=== PATIENT | male | born 1985 | race Caucasian/White ===

== ENCOUNTER 2022-02-04 09:55 | Emergency (ER) | payer OTHER | END 2022-02-04 10:50 | disposition home or self-care (01) | LOC: KA.ED 09:55 | DX: S01.511A Laceration without foreign body of lip, initial encounter (principal); Z87.891 Personal history of nicotine dependence; W22.09XA Striking against other stationary object, initial encounter | CPT/HCPCS: 12013; 99282-25; 99283 ==

== ENCOUNTER 2024-12-31 08:53 | Emergency (ER) | payer BC, OTHER ==
[2024-12-31] MEDS ORDERED: Sodium Chloride 0.9% 10 ML Syringe FLUSH PRN (08:58)
[2024-12-31 09:21] LABS: BASOPHILS ABSOLUTE AUTO 0.02 10^3/uL (0.00-0.10); BASOPHILS PERCENT AUTO 0.2 % (0.0-1.0); EOSINOPHILS ABSOLUTE AUTO 0.08 10^3/uL (0.10-0.30); HEMATOCRIT 48.8 % (40.0-52.0); IMMATURE GRAN ABSOLUTE AUTO 0.02 10^3/uL (0.00-0.04); IMMATURE GRAN PERCENT AUTO 0.2 % (0.0-0.4); LYMPHOCYTES ABSOLUTE AUTO 2.59 10^3/uL (1.00-4.00); LYMPHOCYTES PERCENT AUTO 31.9 % (20.0-40.0); MEAN CORPUSCULAR HEMOGLOBIN 28.9 pg (27.0-31.0); MEAN CORPUSCULAR HGB CONC 34.8 g/dL (32.0-36.0); MEAN CORPUSCULAR VOLUME 82.9 fL (82.0-92.0); MEAN PLATELET VOLUME 10.6 fL (7.4-10.4); MONOCYTES ABSOLUTE AUTO 0.62 10^3/uL (0.10-0.80); MONOCYTES PERCENT AUTO 7.6 % (2.0-8.0); NEUTROPHILS ABSOLUTE AUTO 4.79 10^3/uL (2.50-7.00); NEUTROPHILS PERCENT AUTO 59.1 % (50.0-70.0); PLATELET COUNT,PLT 215 10^3/uL (150-400); RED BLOOD CELL COUNT 5.89 10^6/uL (4.50-6.00); RED CELL DISTRIBUTION WIDTH 12.1 % (11.5-14.5); WHITE BLOOD CELL COUNT,WBC 8.12 10^3/uL (5.00-10.00)
[2024-12-31 09:38] LABS: ALBUMIN 4.19 g/dL (3.40-5.00); ANION GAP 13.6 mmol/L (5-15); BILIRUBIN TOTAL 1.6 mg/dL (0.2-1.0); CALCIUM 9.4 mg/dL (8.7-10.3); CARBON DIOXIDE,CO2 30.2 mmol/L (21.0-32.0); CREATININE 0.85 mg/dL (0.51-1.17); EST CRCL DRUG DOSING (CG) 115.52 mL/min; POTASSIUM,K 3.8 mmol/L (3.5-5.1); PROTEIN TOTAL,TP 7.9 g/dL (6.4-8.2)
== END 2024-12-31 10:30 | disposition home or self-care (01) ==
LOC: KA.ED 08:53
DX: K21.9 Gastro-esophageal reflux disease without esophagitis (principal); M79.602 Pain in left arm; M25.512 Pain in left shoulder; Z87.891 Personal history of nicotine dependence
CPT/HCPCS: 36415; 71045; 80053; 82150; 83690; 84484; 85025; 93010; 99284; 99285